=== PATIENT | female | born 1955 | race Caucasian/White ===

== ENCOUNTER 2017-04-28 11:41 | Inpatient (IN) | payer OTHER ==
[~2017-04-28] VITALS: Ht 162.6 cm; Wt 112.7 kg
[2017-04-28] MEDS ORDERED: ASPIRIN 81 MG TAB PO ONE (12:00)
[2017-04-28 12:07] LABS: BASOPHIL # 0.1 10^3/ul (0.0-0.1); EOSINOPHILS # 0.1 10^3/ul (0.0-0.5); EOSINOPHILS % 0.9 % (0.0-7.0); HEMOGLOBIN 14.3 g/dl (12.0-16.0); LYMPHOCYTES # 2.5 10^3/ul (0.8-2.9); LYMPHOCYTES % 30.6 % (15.0-51.0); MEAN CORPUSCULAR HEMOGLOBIN 29.2 pg (29.0-33.0); MEAN CORPUSCULAR HGB CONC 33.3 g/dl (32.0-37.0); MEAN CORPUSCULAR VOLUME 87.8 fl (82.0-101.0); MEAN PLATELET VOLUME 10.1 fl (7.4-10.4); MONOCYTE # 0.6 10^3/ul (0.3-0.9); MONOCYTES % 7.3 % (0.0-11.0); NEUTROPHIL # 4.8 10^3/ul (1.6-7.5); NEUTROPHILS % 59.9 % (39.0-77.0); PLATELET COUNT 288 10^3/UL (140-415); RED CELL DISTRIBUTION WIDTH 12.9 % (11.5-14.5)
--- NOTE | 2017-04-28 12:15 | ERD ---
ER Documentation Chief Complaint Chief Complaint left side weakness since 0800 today pain x1wk HPI This is a 62-year-old female with a past medical history of hypertension, diabetes, previous now resolved Alegre's palsy who is presenting with left-sided deficits beginning at approximately 7 AM this morning. The patient states that she felt well when she woke up this morning. However, at around 7 AM this morning, she started to notice some trouble speaking with decreased sensation and weakness to the left arm and leg. The patient's daughter saw her around 9 in the morning and she is concerned, especially when it did not improve. The patient endorses tingling and pain to the left side of her body as well. She lastly endorses a popping sensation in the left ear. The patient denies feeling sick recently. The patient denies fever or chills. The patient has had no headache or vision changes. The patient does not endorse neck or back pain. The patient denies lightheadedness or dizziness. The patient has had no chest pain or shortness of breath or trouble breathing. The patient denies nausea or vomiting. The patient denies abdominal pain or changes to bowel movements or urination. ROS All systems reviewed and are negative except as per history of present illness. Allergies Allergies: Coded Allergies: No Known Allergy (Unverified , 04/28/17) PMhx/Soc History of Surgery: No Hx Neurological Disorder: Yes (Previous resolved Alegre's palsy) Hx Respiratory Disorders: No Hx Cardiac Disorders: Yes (Hypertension, diabetes) Hx Psychiatric Problems: No Hx Miscellaneous Medical Probl: No Hx Alcohol Use: No Hx Substance Use: No Hx Tobacco Use: No FmHx Family History: diabetes Physical Exam Vitals Vital Signs Date Time Temp Pulse Resp B/P Pulse Ox O2 Delivery O2 Flow Rate FiO2 04/28/17 12:44 58 18 158/77 99 Room Air 04/28/17 11:44 98.3 75 18 204/118 99 Physical Exam Const: No apparent distress, well-developed, well-nourished Head: Normocephalic, Atraumatic Eyes: Normal Conjunctiva. Extraocular movements intact. Pupils equal, round and reactive to light ENT: Normal External Ears, Nose and Mouth. Neck: Full range of motion. No meningismus. Resp: Clear to auscultation bilaterally, No wheezes, rales or rhonchi Cardio: Regular rate and rhythm. No murmurs, rubs or gallops Abd: Soft, non tender, non distended. Normal bowel sounds Skin: No petechiae or rashes Back: No midline tenderness. No CVA tenderness Ext: No cyanosis, or edema Neur: Awake and alert, oriented 4. Recognizes a pen, cell phone, ID and flashlight. Decreased sensation to the left arm and left leg. 4+ out of 5 strength to the left arm and left leg with drift in each extremity as well. Normal strength, sensation and coordination to the right-sided extremities. Psych: Normal Mood and Affect Result Diagram: 04/28/17 1155 04/28/17 1155 Results 24 hrs Laboratory Tests Test 04/28/17 11:55 04/28/17 12:16 White Blood Count 8.010^3/ul Red Blood Count 4.9010^6/ul Hemoglobin 14.3g/dl Hematocrit 43.0% Mean Corpuscular Volume 87.8fl Mean Corpuscular Hemoglobin 29.2pg Mean Corpuscular Hemoglobin Concent 33.3g/dl Red Cell Distribution Width 12.9% Platelet Count 90116^3/UL Mean Platelet Volume 10.1fl Neutrophils % 59.9% Lymphocytes % 30.6% Monocytes % 7.3% Eosinophils % 0.9% Basophils % 1.0% Nucleated Red Blood Cells % 0.0/100WBC Neutrophils # 4.810^3/ul Lymphocytes # 2.510^3/ul Monocytes # 0.610^3/ul Eosinophils # 0.110^3/ul Basophils # 0.110^3/ul Nucleated Red Blood Cells # 0.010^3/ul Prothrombin Time 12.8Sec Prothrombin Time Ratio 1.0 INR International Normalized Ratio 0.96 Activated Partial Thromboplast Time 25.8Sec Sodium Level 143mmol/L Potassium Level 4.3mmol/L Chloride Level 107mmol/L Carbon Dioxide Level 25mmol/L Anion Gap 15 Blood Urea Nitrogen 13mg/dl Creatinine 0.80mg/dl Glucose Level 89mg/dl Hemoglobin A1c 5.5% Calcium Level 9.8mg/dl Troponin I < 0.012ng/ml Bedside Glucose 81mg/dL Current Medications Medications (Trade) Dose Ordered Sig/Rakan Route PRN Reason Start Time Stop Time Status Last Admin Dose Admin Aspirin (Aspirin) 324 mg ONCE ONCE PO 04/28/17 12:00 04/28/17 12:01 DC 04/28/17 12:49 Procedures/[facility] MDM The patient's presentation warrants further investigation. I am concerned of a stroke in this patient. A code stroke will be called. Tele-neurology will be consulted. LABS The patient's blood work was obtained and reviewed. The patient's CBC shows no leukocytosis and no left shift. The patient is afebrile and does not appear systemically ill. I do not suspect a systemic infection. The patient is not anemic today. The patient's platelet count is unremarkable. The patient's BMP shows no signs of metabolic or electrolyte emergencies. The patient has unremarkable renal testing. The patient's hemoglobin A1c is unremarkable. The patient's troponin is negative. The patient's coags are also unremarkable. EKG EKG read by me: Rate/Rhythm: Regular rate and rhythm at a rate of 61 bpm Intervals: Normal [place]: Left shifted Impression: No evidence of acute ischemia or arrhythmia IMAGING CXR FINDINGS: The trachea is midline. The cardiac silhouette and pulmonary vascularity are within normal limits. The lungs are clear. The costophrenic angles are sharp. There are multiple old right-sided rib fracture deformities. IMPRESSION: No evidence of acute cardiopulmonary disease. Multiple old right- sided rib fracture deformities. Electronically viewed and signed by Physician Koko on 04/28/2017 12:39 CT Head FINDINGS: The ventricles and cortical sulci are within normal limits. The nolasco- white matter differentiation is maintained. No intra or extra-axial fluid collection or mass effect or shift in the midline structures is seen. Mild mucosal thickening in the left sphenoid sinus is seen. The remaining visualized paranasal sinuses, mastoid air cells, orbits, and calvarium are unremarkable. IMPRESSION: No acute intracranial pathology. Electronically viewed and signed by Physician Lamont on 04/28/2017 12: 17 TREATMENT/DISPOSITION At this time, I feel that the patient requires admission for further evaluation and management. The patient's chads vasc score is 3. Tele-neurology evaluated the patient and felt that she required admission for further evaluation and management. The patient will likely require an MRI, echocardiogram, carotid studies. These subsequent studies will be decided on by the primary team. The patient will receive aspirin in the emergency department. The patient will be admitted to Panel in accordance with the patient's insurance. The patient was accepted by Dr. Ortiz at 1:25 PM on April 28, 2017. The patient's blood pressure was elevated at greater than 120/80 while in the emergency department. The patient was otherwise stable with no evidence of hypertensive urgency or emergency or end organ damage. The patient's blood pressure was initially quite elevated, but it improved on its own without intervention once things settle down in the emergency department. CRITICAL CARE NOTE Time: 35 minutes excluding all billable procedures. Treatments/Evaluations: Evaluation of the patient's medical record including previous records & current laboratory/imaging studies, close monitoring, potential interventions if hemodynamically unstable or cardiopulmonary decline or neurologic decline, maintaining tight fluid balance, any discussions with the family regarding the patient's status and prognosis. Disclaimer: Inadvertent spelling and grammatical errors are likely due to EHR/ dictation software use and do not reflect on the overall quality of patient care. Note that the electronic time recorded on this note does not necessarily reflect the actual time of the patient encounter. Departure Diagnosis: Primary Impression: CVA (cerebral vascular accident) CVA mechanism: unspecified Qualified Code: I63.9 - Cerebrovascular accident (CVA), unspecified mechanism Additional Impressions: Dysarthria Paresthesia Hypertension Hypertension type: unspecified Qualified Code: I10 - Hypertension, unspecified type Condition: Serious ANJUM RICO MD Apr 28, 2017 12:10 ANJUM RICO MD Apr 28, 2017 12:10
--- NOTE | 2017-04-28 12:17 | RADRPT ---
PROCEDURE: CT Head without contrast. CLINICAL INDICATION: Neurologic deficit TECHNIQUE: The study was performed utilizing a GE 64-slice multidetector CT scanner. Direct spiral axial CT images of the brain were obtained from the vertex to the skull base without contrast. Cor onal and sagittal reformat images are provided. The CTDI vol is 44.26 mGy and the DLP is 720.23 mGy -cm. The images were reviewed on a PACS workstation. One or more of the following dose reduction techniques were used: Automated exposure control. Adjustment of the mA and/or kV according to patient size. Use of iterative reconstruction technique. COMPARISON: No prior studies are available for comparison. FINDINGS: The ventricles and cortical sulci are within normal limits. The nolasco-white matter differentiation i s maintained. No intra or extra-axial fluid collection or mass effect or shift in the midline struc tures is seen. Mild mucosal thickening in the left sphenoid sinus is seen. The remaining visualized paranasal sinuses, mastoid air cells, orbits, and calvarium are unremarkable. IMPRESSION: No acute intracranial pathology. RPTAT: HPNM Physician Lamont Date Time Electronically viewed and signed by Physician Lamont on 04/28/2017 12:17 /
[2017-04-28 12:26] LABS: INR 0.96; PROTIME 12.8 Sec (12.2-14.2)
[2017-04-28 12:27] LABS: PARTIAL THROMBOPLASTIN TIME 25.8 Sec (25.0-35.0)
[2017-04-28 12:28] LABS: ANION GAP 15 (8-16); BLOOD UREA NITROGEN 13 mg/dl (7-20); CALCIUM 9.8 mg/dl (8.4-10.2); CARBON DIOXIDE 25 mmol/L (21-31); CHLORIDE 107 mmol/L (97-110); GLUCOSE 89 mg/dl (70-220); POTASSIUM 4.3 mmol/L (3.5-5.1); SODIUM 143 mmol/L (135-144)
[2017-04-28 12:40] LABS: TROPONIN-I < 0.012 ng/ml (0.00-0.12)
--- NOTE | 2017-04-28 12:40 | RADRPT ---
PROCEDURE: XR Chest. CLINICAL INDICATION: Shortness of breath TECHNIQUE: Single portable view of the chest was obtained COMPARISON: No priors for comparison FINDINGS: The trachea is midline. The cardiac silhouette and pulmonary vascularity are within normal limits. T he lungs are clear. The costophrenic angles are sharp. There are multiple old right-sided rib fractu re deformities. IMPRESSION: 1. No evidence of acute cardiopulmonary disease. 2. Multiple old right-sided rib fracture deformities. RPTAT: AAPP Physician Koko Date Time Electronically viewed and signed by Lexie Walker Physician on 04/28/2017 12:39 JL/
--- NOTE | 2017-04-28 13:14 | STROKE ---
Date/Time of Note Date/Time of Note DATE: 04/28/17 TIME: 13:05 Patient Information General Patient location: emergency Arrival Date Age 62 Gender female Weight 112.73 kg est by family POC Glucose Glucose Result Bedside Glucose - 72 Hours Test 04/28/17 12:16 Bedside Glucose 81mg/dL (70-220) Vital Signs Vital Signs Vital Signs Date Time Temp Pulse Resp B/P Pulse Ox O2 Delivery O2 Flow Rate FiO2 04/28/17 12:44 58 18 158/77 99 Room Air 04/28/17 11:44 98.3 Patient History Past Medical History Diabetes, Hypertension, Hypercholesterolemia Current Medications Anti-Coagulants: None Anti-Platelets: ASA 81mg Allergies: Coded Allergies: No Known Allergy (Unverified , 04/28/17) Labs Hematology Labs Hematology Test 04/28/17 11:55 White Blood Count 8.010^3/ul (4.8-10.8) Red Blood Count 4.9010^6/ul (4.20-5.40) Hemoglobin 14.3g/dl (12.0-16.0) Hematocrit 43.0% (37.0-47.0) Mean Corpuscular Volume 87.8fl (82.0-101.0) Mean Corpuscular Hemoglobin 29.2pg (29.0-33.0) Mean Corpuscular Hemoglobin Concent 33.3g/dl (32.0-37.0) Red Cell Distribution Width 12.9% (11.5-14.5) Platelet Count 56387^3/UL (140-415) Mean Platelet Volume 10.1fl (7.4-10.4) Neutrophils % 59.9% (39.0-77.0) Lymphocytes % 30.6% (15.0-51.0) Monocytes % 7.3% (0.0-11.0) Eosinophils % 0.9% (0.0-7.0) Basophils % 1.0% (0.0-2.0) Nucleated Red Blood Cells % 0.0/100WBC (0.0-0.0) Neutrophils # 4.810^3/ul (1.6-7.5) Lymphocytes # 2.510^3/ul (0.8-2.9) Monocytes # 0.610^3/ul (0.3-0.9) Eosinophils # 0.110^3/ul (0.0-0.5) Basophils # 0.110^3/ul (0.0-0.1) Nucleated Red Blood Cells # 0.010^3/ul (0.0-0.0) Chemistry Labs Chemistry Test 04/28/17 11:55 04/28/17 12:16 Sodium Level 143mmol/L (135-144) Potassium Level 4.3mmol/L (3.5-5.1) Chloride Level 107mmol/L (97-110) Carbon Dioxide Level 25mmol/L (21-31) Anion Gap 15 (8-16) Blood Urea Nitrogen 13mg/dl (7-20) Creatinine 0.80mg/dl (0.44-1.00) Glucose Level 89mg/dl (70-220) Hemoglobin A1c 5.5% (0-5.9) Calcium Level 9.8mg/dl (8.4-10.2) Troponin I < 0.012ng/ml (0.00-0.12) Bedside Glucose 81mg/dL (70-220) Coagulation Labs: Coagulation Test 04/28/17 11:55 Prothrombin Time 12.8Sec (12.2-14.2) Prothrombin Time Ratio 1.0 INR International Normalized Ratio 0.96 Activated Partial Thromboplast Time 25.8Sec (25.0-35.0) History & Physical Patient History Notes Pt Hx Reviewed History of Present Illness 62yo F presents with acute onset left sided weakness and numbness. Patient reports that she was normal when she woke up this morning but developed left sided numbness and weakness at 7am. She did not tell anyone until her daughter saw that she was having to hold on to furniture to walk due to imbalance. Patient also reports that she has been experiencing muscle pain in her left arm and leg and a burning pain in her left head and arm for some time. She also feels that her left ear is not right and feels like there is a pulsating air in her ear. Review of Systems Constitutional: no symptoms reported EENTM: see HPI Respiratory: no symptoms reported Cardiovascular: no symptoms reported Gastrointestinal: no symptoms reported Genitourinary: no symptoms reported Musculoskeletal: no symptoms reported Skin: no symptoms reported Psychiatric/Neurological: no symptoms reported All Other Systems: Reviewed and Negative NIH Stroke Scale NIH Stroke Scale 1A - Level of Conciousness: 0 - Alert keenly [id number] LOC Questions: 0 - Answers both questions2 - Best Gaze: 0 - Normal3 - Visual: 0 - No visual loss 4 - Facial Palsy: 0 - No visual loss5A - Motor Arm - Left: 0 - No crhtf2P - Motor Arm - Right: 0 - No xeida4L - Motor Leg - Left: 0 - No sdsns7E - Motor Leg - Right: 0 - No drift7 - Limb Ataxia: 0 - Absent8 - Sensory: 1 - Mild to moderate loss9 - Best Language: 0 - No aphasia or normalDysarthria: 0 - Normal 11 - Extinction and inattentio: 0 - No abnormalityTotal Score: 1 Date/Time Recorded DATE: 04/28/17 TIME: 13:05 Submitted By Michi Hoff t-PA Imaging Review Imaging Reviewed: Yes Date/Time Imaging Reviewed DATE: 04/28/17 TIME: 13:05 Imaging Findings No acute changes t-PA Administration Recommendation: No Weight 112.73 kg est by family Recommedation submitted by Michi Hoff Reason t-PA not Recommended outside of the time window, mild symptoms t-PA Not Recommended Date/Time 12:40 Recommendations Impression Diagnosis ischemic stroke Recommendation 62yo F presents with acute onset left sided numbness and weakness, now improved , as well more subacute onset left head and arm burning pain. Neurological exam is notable for decreased sensation to pin in the left face, arm, and leg. I believe the patient has had an acute ischemic stroke. I recommend workup to include MRI Brain without gadolinium, MRA of the head without gadolinium, MRA of the neck with gadolinium, and transthoracic echocardiogram. Given the burning pain described, I also recommend MRI cervical spine without gadolinium. I recommend aspirin 325mg x 1 now then 81mg daily. Diagnostic Labs: Lipid Proile Hgb A1C CMP CBC w/Diff Therapy: Physical Therapy Speech Therapy Occupational Therapy Misc. Recommendations: Bedside Swallow Evaluation Pnumatic Compression Devices Stroke Education Smoking Education MICHI HOFF Apr 28, 2017 13:13
[2017-04-28] MEDS ORDERED: ACETAMINOPHEN 325 MG TAB PO PRN ×2 (13:30→14:30)
[2017-04-28] MEDS ORDERED: ONDANSETRON 4 MG INJ IV PRN (13:30)
[2017-04-28] MEDS ORDERED: ASPI81TA3 PO (13:43)
[2017-04-28] MEDS ORDERED: CAPT25TA3 PO (13:43)
[2017-04-28] MEDS ORDERED: METF500T4 PO (13:44)
[2017-04-28] MEDS ORDERED: ATOR10TA65 PO (13:44)
[2017-04-28] MEDS ORDERED: SOD CHLORIDE 0.45% 1,000 ML IV SCH (14:12)
--- NOTE | 2017-04-28 14:26 | HP ---
Date/Time of Note Date/Time of Note DATE: 04/28/17 TIME: 14:17 Assessment/Plan VTE Prophylaxis VTE Prophylaxis Intervention: SCD's Lines/Catheters IV Catheter Type (from Nrs): Saline Lock Assessment/Plan Chief Complaint/Hosp Course Patient is a 62-year-old female who presents to [facility] for left-sided weakness and numbness, questionable CVA Assessment and plan Left-sided weakness and numbness and facial droop -Questionable CVA -Tele-neurologist decided no TPA due to outside window -Neurologist consulted -MRA, MRI, of the brain as well as MRA of the neck, as well as echocardiogram ordered. CT had noted, no acute issues -Full dose aspirin given today, baby aspirin starting tomorrow Left-sided leg and arm pain -Gabapentin -Questionable sequelae of CVA Neck pain -Questionable muscle strain -Robaxin Diabetes mellitus -Hold metformin for now -Insulin sliding scale -A1c Hypertension -On hold SUKHI inhibitor, captopril, will change to lisinopril for easier dosing and proven benefits over captopril Dyslipidemia -Increased atorvastatin to 80 mg due to acute CVA Problems: HPI/ROS Admit Date/Time Admit Date/Time Hx of Present Illness Patient is a 62-year-old female with past medical history of diabetes hypertension who presents to [facility] for acute onset left- sided weakness and numbness. Patient stated approximately 7 AM today she suddenly felt weak and numb on her left lower extremity and left upper extremity as well as difficulty speaking and left-sided facial numbness. Patient's daughter is at bedside and also contributes to HPI. Patient was sent to the ED and was seen by tele-neurologist, who did not prescribe TPA as patient is out of the window. Patient states that symptoms have mildly resolved , however it is now accompanied by a painful sensation to touch on her left lower extremity, mild pain to touch on her left upper extremity, as well as mild neck pain. 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 Patient denies any shortness of breath, fever, chest pain, nausea, vomiting at this time. PMH: Hypertension, diabetes mellitus, history of Alegre's palsy PSH: None Social: Denies Meds: Captopril, metformin, aspirin, atorvastatin PMH/Family/Social Social History Smoking Status: Never smoker Exam/Review of Systems Vital Signs Vitals Vital Signs Date Time Temp Pulse Resp B/P Pulse Ox O2 Delivery O2 Flow Rate FiO2 04/28/17 14:06 60 18 155/70 99 Room Air 04/28/17 11:44 98.3 Exam Exam Physical exam General: Patient is laying in bed and answers questions appropriately Mentation: Patient is alert and oriented 4, Head: Normocephalic atraumatic Eyes: EOMI, pupils reactive to light Neck: Supple, nontender, midline Respiratory: Clear to auscultation bilaterally Cardiovascular: regular rate, no obvious murmurs Gastrointestinal: non-tender to palpation, bowel sounds heard. Neurological: Strength LUE 4/5 RUE 5/5 LLE4/5 RLE 5/5 Sensation LUE/LLE 4/5 RUE/ RLE 5/5 Painful to touch on left LE, all areas, worse on thigh Skin: No new skin lesions Labs Result Diagram: 04/28/17 1155 04/28/17 1155 Medications Medications Current Medications Aspirin 81 mg 81 mg DAILY PO ; Start 04/29/17 at 09:00 Sodium Chloride (1/2 NS) 1,000 ml @ 75 mls/hr [id number] IV ; Start 04/28/17 at 14:12; Status UNV Lorazepam (Ativan) 0.5 mg Q8H PRN PO ANXIETY; Start 04/28/17 at 14:30; Status UNV Ondansetron HCl (Zofran Inj) 4 mg Q6H PRN IV NAUSEA AND/OR VOMITING; Start at 14:30; Status UNV Acetaminophen (Tylenol Tab) 650 mg Q6H PRN PO PAIN LEVEL 1-3 OR FEVER; Start 04/28/17 at 14:30; Status UNV Acetaminophen/ Hydrocodone Bitart ([place] (5/325)) 1 tab Q6H PRN PO PAIN LEVEL 4 -6; Start 04/28/17 at 14:30; Status UNV Morphine Sulfate (morphine) 2 mg Q4H PRN IV PAIN LEVEL 7-10; Start 04/28/17 at 14:30; Status UNV Bisacodyl (Dulcolax) 5 mg DAILY PRN PO CONSTIPATION; Start 04/28/17 at 14:30; Status UNV Gabapentin (Neurontin) 300 mg TID PO ; Start 04/28/17 at 21:00; Status UNV Lisinopril (Zestril) 20 mg DAILY PO ; Start 04/28/17 at 14:30; Status UNV Miscellaneous Information (* Miscellaneous Pharmacy Order) Discontinue current oral sulfonylur... ONCE ONCE XX ; Start 04/28/17 at 14:30; Stop 04/28/17 at 14:31; Status UNV Diagnostic Test (Pha) (Accu-Chek) XX ; Start 04/29/17 at 02:00; Status UNV Miscellaneous Information (* Miscellaneous Pharmacy Order) HYPOGLYCEMIA PROTOCOL w... ONCE ONCE XX ; Start 04/28/17 at 14:30; Stop 04/28/17 at 14:31 ; Status UNV Miscellaneous Information (* Miscellaneous Pharmacy Order) Discontinue all previ... ONCE ONCE XX ; Start 04/28/17 at 14:30; Stop 04/28/17 at 14:31; Status UNV PAVEL MONROE Apr 28, 2017 14:26
[2017-04-28] MEDS ORDERED: morphine 2 MG INJ IV PRN (14:30)
[2017-04-28] MEDS ORDERED: NACL 0.9% 3 ML SYG IV SCH (14:30)
[2017-04-28] MEDS ORDERED: LABETALOL HCL 20MG INJ IV PRN (14:30)
[2017-04-28] MEDS ORDERED: BISACODYL (EC) 5 MG TAB PO PRN (14:30)
[2017-04-28 15:52] VITALS: Ht 162.6 cm; Wt 112.7 kg
[2017-04-28 16:00] VITALS: PULSE 61
[2017-04-28] MEDS: ONDANSETRON 4 MG INJ IV PRN (16:48)
[2017-04-28] MEDS: HYDROCODONE/APAP (5/325) TAB PO PRN (16:48)
[2017-04-28] MEDS: LISINOPRIL 20 MG TAB PO SCH (17:00)
[2017-04-28 17:01] VITALS: BP 140/74; PULSE 55; RESP 16
[2017-04-28] MEDS: INSULIN ASPART [NOVOLOG] 3 ML PEN SC SCH ×2 (17:35→21:00)
[2017-04-28 19:00] VITALS: BP 126/61; PULSE 58; RESP 16
[2017-04-28 20:00] VITALS: PULSE 58
[2017-04-28] MEDS: METHOCARBAMOL 500 MG TAB PO SCH (20:38)
[2017-04-28] MEDS: GABAPENTIN 300 MG CAP PO SCH (20:38)
[2017-04-28] MEDS: LORAZEPAM 0.5 MG TAB PO PRN (20:38)
[2017-04-28] MEDS: ATORVASTATIN 80 MG TAB PO SCH (20:38)
[2017-04-28 23:30] VITALS: BP 120/63; PULSE 58; RESP 16
[2017-04-29] VITALS (10 sets, daily range): BP systolic 103–124; BP diastolic 56–68; PULSE 52–61; RESP 16–17
[2017-04-29] MEDS: ACCU-CHEK XX SCH (02:00)
[2017-04-29 05:58] LABS: BASOPHIL # 0.1 10^3/ul (0.0-0.1); BASOPHILS % 0.9 % (0.0-2.0); EOSINOPHILS # 0.1 10^3/ul (0.0-0.5); EOSINOPHILS % 1.3 % (0.0-7.0); HEMATOCRIT 38.7 % (37.0-47.0); HEMOGLOBIN 12.4 g/dl (12.0-16.0); LYMPHOCYTES % 40.9 % (15.0-51.0); MEAN CORPUSCULAR HEMOGLOBIN 28.6 pg (29.0-33.0); MEAN CORPUSCULAR VOLUME 89.4 fl (82.0-101.0); MEAN PLATELET VOLUME 10.7 fl (7.4-10.4); MONOCYTE # 0.6 10^3/ul (0.3-0.9); MONOCYTES % 8.3 % (0.0-11.0); NEUTROPHIL # 3.6 10^3/ul (1.6-7.5); NEUTROPHILS % 48.5 % (39.0-77.0); PLATELET COUNT 258 10^3/UL (140-415); RED BLOOD COUNT 4.33 10^6/ul (4.20-5.40); RED CELL DISTRIBUTION WIDTH 13.1 % (11.5-14.5); WHITE BLOOD COUNT 7.4 10^3/ul (4.8-10.8)
[2017-04-29 06:39] LABS: ALBUMIN 3.1 g/dl (3.3-4.9); ALBUMIN/GLOBULIN RATIO 1.03; BILIRUBIN,INDIRECT 0.5 mg/dl (0-1.1); BILIRUBIN,TOTAL 0.5 mg/dl (0.2-1.3); CALCIUM 9.5 mg/dl (8.4-10.2); CHOL/HDL RATIO 5.3 RATIO; CREATININE 0.8 mg/dl (0.44-1.00); MAGNESIUM 1.9 mg/dl (1.7-2.5); POTASSIUM 4.4 mmol/L (3.5-5.1); TOTAL PROTEIN 6.1 g/dl (6.1-8.1)
[2017-04-29 07:14] LABS: THYROID STIMULATING HORMONE 2.11 MIU/L (0.465-4.680)
[2017-04-29] MEDS: INSULIN ASPART [NOVOLOG] 3 ML PEN SC SCH ×4 (07:35→21:00)
[2017-04-29] MEDS: ASPIRIN 81 MG TAB PO SCH (08:30)
[2017-04-29] MEDS: GABAPENTIN 300 MG CAP PO SCH ×3 (08:30→21:45)
[2017-04-29] MEDS: LISINOPRIL 20 MG TAB PO SCH (08:30)
[2017-04-29] MEDS: METHOCARBAMOL 500 MG TAB PO SCH ×3 (09:31→21:45)
--- NOTE | 2017-04-29 11:29 | RADRPT ---
PROCEDURE: MR Brain without contrast. CLINICAL INDICATION: Neurologic deficit TECHNIQUE: An MRI of the brain was performed on a high-resolution MR scanner utilizing the followi ng sequences: Sagittal and axial T1 weighted, axial T2 weighted, axial FLAIR, coronal GRE, and axial diffusion weighted with ADC mapping. Images were reviewed high-resolution PACS workstation. No con trast was administered. COMPARISON: Head CT yesterday. FINDINGS: No acute parenchymal hemorrhage, mass effect, or midline shift. No evidence of recent infarct. A few scattered cerebral white matter FLAIR hyperintense foci are nonspecific. Partially empty appearance of the sella turcica. No suspicious parenchymal hypointense signal abnormalities are seen on the GRE images to suggest the presence of blood degradation products. The ventricles are normal in size for age. Normal flow voids are visible in the proximal intracranial arteries suggesting their patency. No significant opacification of the paranasal sinuses or mastoids. IMPRESSION: No acute intracranial abnormality or evidence of recent infarct. RPTAT: AA .Peyman Gimenez MD, MD Date Time Electronically viewed and signed by .Peyman Gimenez MD, on 04/29/2017 11:29 .T/
--- NOTE | 2017-04-29 11:30 | RADRPT ---
PROCEDURE: MRA Head without contrast. CLINICAL INDICATION: Neurologic deficit, stroke TECHNIQUE: MRA of the brain was performed utilizing 3-D [id number] imaging without intravenous contrast. Source and MIP images were reviewed. COMPARISON: None available. FINDINGS: No significant focal proximal stenosis or large vessel occlusion of the bilateral intracranial ICA, bilateral MCA, or bilateral TITO. There is also no significant focal proximal stenosis or large vess el occlusion of the bilateral intradural vertebral artery segments, basilar artery, or bilateral G[place] BOSS . No aneurysm is identified. IMPRESSION: Patent intracranial arteries. No large vessel occlusion identified. RPTAT: AA .Peyman Gimenez MD, MD Date Time Electronically viewed and signed by .Peyman Gimenez MD, on 04/29/2017 11:29 .T/
--- NOTE | 2017-04-29 12:20 | RADRPT ---
PROCEDURE: MRA Neck without contrast. CLINICAL INDICATION: Neurologic deficit, stroke TECHNIQUE: An MRA of the major cervical arteries was performed on a utilizing axial 2D time of fli ght and localized 3-D [id number] to the carotid bifurcations. No IV contrast was given as orde red. Source and MIPPED images were reviewed. COMPARISON: No prior studies are available for comparison. FINDINGS: There is no significant focal stenosis of the bilateral common carotid, internal carotid or visualiz ed vertebral arteries. Measurements for possible stenosis utilized NASCET criteria. IMPRESSION: Patent major cervical arteries. RPTAT: AA .Peyman Gimenez MD, MD Date Time Electronically viewed and signed by .Peyman Gimenez MD, on 04/29/2017 12:20 .T/
--- NOTE | 2017-04-29 13:30 | PN ---
Date/Time of Note Date/Time of Note DATE: 04/29/17 TIME: 13:27 Assessment/Plan VTE Prophylaxis VTE Prophylaxis Intervention: SCD's Lines/Catheters IV Catheter Type (from Nrsg): Saline Lock Assessment/Plan Chief Complaint/Hosp Course Patient is a 62-year-old female who presents to [facility] for left-sided weakness and numbness, questionable CVA Assessment and plan Left-sided weakness and numbness and facial droop -Questionable CVA -Tele-neurologist decided no TPA due to outside window -Neurologist consulted -MRI, MRA, CT WNL -baby asa -statin Left-sided leg and arm pain -Gabapentin helping -Questionable sequelae of CVA vs spinal? -arm pain resolved, but if leg pain persists tomorrow, may consider spinal imaging Neck pain -Questionable muscle strain -Robaxin helping Diabetes mellitus -Hold metformin for now -Insulin sliding scale -A1c Hypertension -Patient was on captopril, will change to lisinopril for easier dosing and proven benefits over captopril Dyslipidemia -Increased atorvastatin to 80 mg due to acute CVA DISPO: -pending neuro recs -f/u tomorrow, if symptoms improve, will consider DC once neuro input is in. Problems: Subjective 24 Hr Interval Summary Free Text/Dictation pain has decreased, but still painful left thigh and facial droop Exam/Review of Systems Vital Signs Vitals Vital Signs Date Time Temp Pulse Resp B/P Pulse Ox O2 Delivery O2 Flow Rate FiO2 04/29/17 12:00 55 04/29/17 07:45 98.5 17 115/56 98 Room Air Exam Physical exam General: Patient is laying in bed and answers questions appropriately Mentation: Patient is alert and oriented 4, Head: Normocephalic atraumatic Eyes: EOMI, pupils reactive to light Neck: Supple, nontender, midline Respiratory: Clear to auscultation bilaterally Cardiovascular: regular rate, no obvious murmurs Gastrointestinal: non-tender to palpation, bowel sounds heard. Neurological: Strength LUE 4/5 RUE 5/5 LLE4/5 RLE 5/5 Sensation LUE/LLE 4/5 RUE/ RLE 5/5 Painful to touch on left LE, all areas, worse on thigh Skin: No new skin lesions Results Result Diagram: 04/29/17 0429 04/29/17 0429 Results 24 hrs Laboratory Tests Test 04/28/17 17:50 11/20/17 20:35 04/29/17 04:29 04/29/17 07:48 Bedside Glucose 80 105 86 White Blood Count 7.4 Red Blood Count 4.33 Hemoglobin 12.4 Hematocrit 38.7 Mean Corpuscular Volume 89.4 Mean Corpuscular Hemoglobin 28.6 L Mean Corpuscular Hemoglobin Concent 32.0 Red Cell Distribution Width 13.1 Platelet Count 258 Mean Platelet Volume 10.7 H Neutrophils % 48.5 Lymphocytes % 40.9 Monocytes % 8.3 Eosinophils % 1.3 Basophils % 0.9 Nucleated Red Blood Cells % 0.0 Neutrophils # 3.6 Lymphocytes # 3.0 H Monocytes # 0.6 Eosinophils # 0.1 Basophils # 0.1 Nucleated Red Blood Cells # 0.0 Sodium Level 143 Potassium Level 4.4 Chloride Level 108 Carbon Dioxide Level 26 Anion Gap 13 Blood Urea Nitrogen 16 Creatinine 0.80 Glucose Level 79 Calcium Level 9.5 Magnesium Level 1.9 Total Bilirubin 0.5 Direct Bilirubin 0.00 Indirect Bilirubin 0.5 Aspartate Amino Transf (AST/SGOT) 16 Alanine Aminotransferase (ALT/SGPT) 35 Alkaline Phosphatase 68 Total Protein 6.1 Albumin 3.1 L Globulin 3.00 Albumin/Globulin Ratio 1.03 Triglycerides Level 112 Cholesterol Level 171 LDL Cholesterol, Calculated 117 HDL Cholesterol 32 L Cholesterol/HDL Ratio 5.3 Thyroid Stimulating Hormone (TSH) 2.110 Test 04/29/17 12:17 Bedside Glucose 82 Medications Medications Current Medications Aspirin (Aspirin) 81 mg DAILY PO Last administered on 04/29/17 08:30; Admin Dose 81 MG; Start 04/29/17 at 09:00 Lorazepam (Ativan) 0.5 mg Q8H PRN PO ANXIETY Last administered on 04/28/17 20 :38; Admin Dose 0.5 MG; Start 04/28/17 at 14:30 Ondansetron HCl (Zofran Inj) 4 mg Q6H PRN IV NAUSEA AND/OR VOMITING Last administered on 04/28/17 16:48; Admin Dose 4 MG; Start 04/28/17 at 14:30 Acetaminophen (Tylenol Tab) 650 mg Q6H PRN PO PAIN LEVEL 1-3 OR FEVER; Start 04/28/17 at 14:30 Acetaminophen/ Hydrocodone Bitart ([place] (5/325)) 1 tab Q6H PRN PO PAIN LEVEL 4 -6 Last administered on 04/28/17 16:48; Admin Dose 1 TAB; Start 04/28/17 at 14:30 Morphine Sulfate (morphine) 2 mg Q4H PRN IV PAIN LEVEL 7-10; Start 04/28/17 at 14:30 Bisacodyl (Dulcolax) 5 mg DAILY PRN PO CONSTIPATION; Start 04/28/17 at 14:30 Gabapentin (Neurontin) 300 mg TID PO Last administered on 04/29/17 08:30; Admin Dose 300 MG; Start 04/28/17 at 21:00 Lisinopril (Zestril) 20 mg DAILY PO Last administered on 04/29/17 08:30; Admin Dose 20 MG; Start 04/28/17 at 14:30 Diagnostic Test (Pha) (Accu-Chek) 1 ea 02 XX ; Start 04/29/17 at 02:00 Atorvastatin Calcium (Lipitor) 80 mg HS PO Last administered on 04/28/17 20: 38; Admin Dose 80 MG; Start 04/28/17 at 21:00 Methocarbamol (Robaxin) 1,000 mg TID PO Last administered on 04/29/17 09:31; Admin Dose 1,000 MG; Start 04/28/17 at 21:00 Labetalol HCl (Labetalol) 10 mg Q4 PRN IV SBP >180; Start 04/28/17 at 14:30 PAVEL MONROE Apr 29, 2017 13:30
--- NOTE | 2017-04-29 17:22 | CONS ---
Date/Time of Note Date/Time of Note DATE: 04/29/17 TIME: 17:18 Assessment/Plan Assessment/Plan Chief Complaint/Hosp Course 62 yo female w HTN, HLD, DM p/w left sided numbness and weakness w difficulty communicating improved. possible TIA ASA 81 mg EC HBA1C 5.5 Lipitor 80 mg optimize risk factors SBP <140/90 ECHO DVT ppx PT/OT/Speech eval Problems: Consultation Date/Type/Reason Admit Date/Time 04/29/17 Date of Consultation: Apr 29, 2017 Type of Consultation: Neurology Reason for Consultation rule out CVA Referring Provider: PAVEL MONROE Hx of Present Illness 62 yo female with hx of DM, HTN presented w left sided weakness numbness and pain in her left arm. Reportedly had difficulty speaking and left facial numbness. She was out of an IV tPA window. MRI Brain and MRA Head/Neck are negative. 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 II-XII intact, DTR's symmetric (mild left arm leg weakness 5- /5 w drift), nl mental status, nl speech Results Result Diagram: 04/29/179 04/29/17428 Results 24 hrs Laboratory Tests Test 04/28/17 17:50 04/28/17 20:35 04/29/17 04:29 04/29/17 07:48 Bedside Glucose 80 105 86 White Blood Count 7.4 Red Blood Count 4.33 Hemoglobin 12.4 Hematocrit 38.7 Mean Corpuscular Volume 89.4 Mean Corpuscular Hemoglobin 28.6 L Mean Corpuscular Hemoglobin Concent 32.0 Red Cell Distribution Width 13.1 Platelet Count 258 Mean Platelet Volume 10.7 H Neutrophils % 48.5 Lymphocytes % 40.9 Monocytes % 8.3 Eosinophils % 1.3 Basophils % 0.9 Nucleated Red Blood Cells % 0.0 Neutrophils # 3.6 Lymphocytes # 3.0 H Monocytes # 0.6 Eosinophils # 0.1 Basophils # 0.1 Nucleated Red Blood Cells # 0.0 Sodium Level 143 Potassium Level 4.4 Chloride Level 108 Carbon Dioxide Level 26 Anion Gap 13 Blood Urea Nitrogen 16 Creatinine 0.80 Glucose Level 79 Calcium Level 9.5 Magnesium Level 1.9 Total Bilirubin 0.5 Direct Bilirubin 0.00 Indirect Bilirubin 0.5 Aspartate Amino Transf (AST/SGOT) 16 Alanine Aminotransferase (ALT/SGPT) 35 Alkaline Phosphatase 68 Total Protein 6.1 Albumin 3.1 L Globulin 3.00 Albumin/Globulin Ratio 1.03 Triglycerides Level 112 Cholesterol Level 171 LDL Cholesterol, Calculated 117 HDL Cholesterol 32 L Cholesterol/HDL Ratio 5.3 Thyroid Stimulating Hormone (TSH) 2.110 Test 04/29/17 12:17 04/29/17 16:54 Bedside Glucose 82 90 Medications Medications Current Medications Aspirin (Aspirin) 81 mg DAILY PO Last administered on 04/29/17 08:30; Admin Dose 81 MG; Start 04/29/17 at 09:00 Lorazepam (Ativan) 0.5 mg Q8H PRN PO ANXIETY Last administered on 04/28/17 20 :38; Admin Dose 0.5 MG; Start 04/28/17 at 14:30 Ondansetron HCl (Zofran Inj) 4 mg Q6H PRN IV NAUSEA AND/OR VOMITING Last administered on 04/28/17 16:48; Admin Dose 4 MG; Start 04/28/17 at 14:30 Acetaminophen (Tylenol Tab) 650 mg Q6H PRN PO PAIN LEVEL 1-3 OR FEVER; Start 04/28/17 at 14:30 Acetaminophen/ Hydrocodone Bitart ([place] (5/325)) 1 tab Q6H PRN PO PAIN LEVEL 4 -6 Last administered on 04/28/17 16:48; Admin Dose 1 TAB; Start 04/28/17 at 14:30 Morphine Sulfate (morphine) 2 mg Q4H PRN IV PAIN LEVEL 7-10; Start 04/28/17 at 14:30 Bisacodyl (Dulcolax) 5 mg DAILY PRN PO CONSTIPATION; Start 04/28/17 at 14:30 Gabapentin (Neurontin) 300 mg TID PO Last administered on 04/29/17 13:33; Admin Dose 300 MG; Start 04/28/17 at 21:00 Lisinopril (Zestril) 20 mg DAILY PO Last administered on 04/29/17 08:30; Admin Dose 20 MG; Start 04/28/17 at 14:30 Diagnostic Test (Pha) (Accu-Chek) 1 ea 02 XX ; Start 04/29/17 at 02:00 Atorvastatin Calcium (Lipitor) 80 mg HS PO Last administered on 04/28/17 20: 38; Admin Dose 80 MG; Start 04/28/17 at 21:00 Methocarbamol (Robaxin) 1,000 mg TID PO Last administered on 04/29/17 13:33; Admin Dose 1,000 MG; Start 04/28/17 at 21:00 Labetalol HCl (Labetalol) 10 mg Q4 PRN IV SBP >180; Start 04/28/17 at 14:30 JALEN BYRNE MD Apr 29, 2017 17:22
[2017-04-29] MEDS: HYDROCODONE/APAP (5/325) TAB PO PRN (19:55)
[2017-04-29] MEDS: LORAZEPAM 0.5 MG TAB PO PRN (21:45)
[2017-04-29] MEDS: ATORVASTATIN 80 MG TAB PO SCH (22:24)
[2017-04-30] VITALS (8 sets, daily range): BP systolic 109–148; BP diastolic 59–70; PULSE 51–68; RESP 16–17
[2017-04-30] MEDS: ACCU-CHEK XX SCH (02:00)
[2017-04-30] MEDS: INSULIN ASPART [NOVOLOG] 3 ML PEN SC SCH ×4 (07:35→21:00)
[2017-04-30 07:41] LABS: BASOPHIL # 0.1 10^3/ul (0.0-0.1); BASOPHILS % 0.8 % (0.0-2.0); EOSINOPHILS # 0.1 10^3/ul (0.0-0.5); EOSINOPHILS % 1.6 % (0.0-7.0); HEMATOCRIT 39.1 % (37.0-47.0); HEMOGLOBIN 12.8 g/dl (12.0-16.0); LYMPHOCYTES # 2.5 10^3/ul (0.8-2.9); LYMPHOCYTES % 39.1 % (15.0-51.0); MEAN CORPUSCULAR HGB CONC 32.7 g/dl (32.0-37.0); MEAN CORPUSCULAR VOLUME 88.7 fl (82.0-101.0); MEAN PLATELET VOLUME 10.5 fl (7.4-10.4); MONOCYTE # 0.5 10^3/ul (0.3-0.9); MONOCYTES % 7.2 % (0.0-11.0); NEUTROPHIL # 3.2 10^3/ul (1.6-7.5); NEUTROPHILS % 51.1 % (39.0-77.0); PLATELET COUNT 253 10^3/UL (140-415); RED BLOOD COUNT 4.41 10^6/ul (4.20-5.40); RED CELL DISTRIBUTION WIDTH 13.2 % (11.5-14.5); WHITE BLOOD COUNT 6.3 10^3/ul (4.8-10.8)
[2017-04-30 08:07] LABS: CALCIUM 9.6 mg/dl (8.4-10.2); CREATININE 0.83 mg/dl (0.44-1.00); PHOSPHORUS 4.3 mg/dl (2.5-4.9); POTASSIUM 4.2 mmol/L (3.5-5.1)
[2017-04-30] MEDS: GABAPENTIN 300 MG CAP PO SCH ×3 (08:24→21:16)
[2017-04-30] MEDS: LISINOPRIL 20 MG TAB PO SCH (08:25)
[2017-04-30] MEDS: ASPIRIN 81 MG TAB PO SCH (08:25)
[2017-04-30] MEDS: HYDROCODONE/APAP (5/325) TAB PO PRN (10:03)
[2017-04-30] MEDS: METHOCARBAMOL 500 MG TAB PO SCH ×3 (10:33→21:16)
--- NOTE | 2017-04-30 14:59 | PN ---
Date/Time of Note Date/Time of Note DATE: 04/30/17 TIME: 14:58 Assessment/Plan VTE Prophylaxis VTE Prophylaxis Intervention: SCD's Lines/Catheters IV Catheter Type (from Nrsg): Saline Lock Assessment/Plan Chief Complaint/Hosp Course s: still has left leg pain o: Physical exam General: Patient is laying in bed and answers questions appropriately Mentation: Patient is alert and oriented 4, Head: Normocephalic atraumatic Eyes: EOMI, pupils reactive to light Neck: Supple, nontender, midline Respiratory: Clear to auscultation bilaterally Cardiovascular: regular rate, no obvious murmurs Gastrointestinal: non-tender to palpation, bowel sounds heard. Neurological: Strength LUE 4/5 RUE 5/5 LLE4/5 RLE 5/5 Sensation LUE/LLE 4/5 RUE/ RLE 5/5 Painful to touch on left LE, all areas, worse on thigh Skin: No new skin lesions Patient is a 62-year-old female who presents to [facility] for left-sided weakness and numbness, questionable CVA Assessment and plan Left-sided weakness and numbness and facial droop -Questionable CVA -Tele-neurologist decided no TPA due to outside window -Neurologist consulted -MRI, MRA, CT WNL -baby asa -statin Left-sided leg and arm pain -Gabapentin helping -Questionable sequelae of CVA vs spinal? -arm pain resolved, leg pain continues -increase gabapentin dose -increase robaxin dose Neck pain -Questionable muscle strain -Robaxin helping Diabetes mellitus -Hold metformin for now -Insulin sliding scale -A1c Hypertension -Patient was on captopril, will change to lisinopril for easier dosing and proven benefits over captopril Dyslipidemia -Increased atorvastatin to 80 mg due to acute CVA DISPO: -pending neuro recs -pending MRI Problems: Exam/Review of Systems Vital Signs Vitals Vital Signs Date Time Temp Pulse Resp B/P Pulse Ox O2 Delivery O2 Flow Rate FiO2 04/30/17 12:00 68 04/30/17 12:00 98.2 17 121/59 97 Room Air Results Result Diagram: 04/30/17 0710 04/30/17 0710 Results 24 hrs Laboratory Tests Test 04/29/17 16:54 04/29/17 21:32 04/30/17 07:10 04/30/17 07:46 Bedside Glucose 90 92 89 White Blood Count 6.3 Red Blood Count 4.41 Hemoglobin 12.8 Hematocrit 39.1 Mean Corpuscular Volume 88.7 Mean Corpuscular Hemoglobin 29.0 Mean Corpuscular Hemoglobin Concent 32.7 Red Cell Distribution Width 13.2 Platelet Count 253 Mean Platelet Volume 10.5 H Neutrophils % 51.1 Lymphocytes % 39.1 Monocytes % 7.2 Eosinophils % 1.6 Basophils % 0.8 Nucleated Red Blood Cells % 0.0 Neutrophils # 3.2 Lymphocytes # 2.5 Monocytes # 0.5 Eosinophils # 0.1 Basophils # 0.1 Nucleated Red Blood Cells # 0.0 Sodium Level 143 Potassium Level 4.2 Chloride Level 108 Carbon Dioxide Level 28 Anion Gap 11 Blood Urea Nitrogen 19 Creatinine 0.83 Glucose Level 84 Calcium Level 9.6 Phosphorus Level 4.3 Magnesium Level 2.0 Test 04/30/17 12:17 Bedside Glucose 141 Medications Medications Current Medications Aspirin (Aspirin) 81 mg DAILY PO Last administered on 04/30/17 08:25; Admin Dose 81 MG; Start 04/29/17 at 09:00 Lorazepam (Ativan) 0.5 mg Q8H PRN PO ANXIETY Last administered on 04/29/17 21 :45; Admin Dose 0.5 MG; Start 04/28/17 at 14:30 Ondansetron HCl (Zofran Inj) 4 mg Q6H PRN IV NAUSEA AND/OR VOMITING Last administered on 04/28/17 16:48; Admin Dose 4 MG; Start 04/28/17 at 14:30 Acetaminophen (Tylenol Tab) 650 mg Q6H PRN PO PAIN LEVEL 1-3 OR FEVER; Start 04/28/17 at 14:30 Acetaminophen/ Hydrocodone Bitart ([place] (5/325)) 1 tab Q6H PRN PO PAIN LEVEL 4 -6 Last administered on 04/30/17 10:03; Admin Dose 1 TAB; Start 04/28/17 at 14:30 Morphine Sulfate (morphine) 2 mg Q4H PRN IV PAIN LEVEL 7-10; Start 04/28/17 at 14:30 Bisacodyl (Dulcolax) 5 mg DAILY PRN PO CONSTIPATION; Start 04/28/17 at 14:30 Lisinopril (Zestril) 20 mg DAILY PO Last administered on 04/30/17 08:25; Admin Dose 20 MG; Start 04/28/17 at 14:30 Diagnostic Test (Pha) (Accu-Chek) 1 ea 02 XX ; Start 04/29/17 at 02:00 Atorvastatin Calcium (Lipitor) 80 mg HS PO Last administered on 04/29/17 22: 24; Admin Dose 80 MG; Start 04/28/17 at 21:00 Labetalol HCl (Labetalol) 10 mg Q4 PRN IV SBP >180; Start 04/28/17 at 14:30 Gabapentin (Neurontin) 600 mg TID PO Last administered on 04/30/17 12:36; Admin Dose 600 MG; Start 04/30/17 at 13:00 Methocarbamol (Robaxin) 1,500 mg TID PO Last administered on 04/30/17 12:36; Admin Dose 1,500 MG; Start 04/30/17 at 13:00 PAVEL MONROE Apr 30, 2017 14:59
--- NOTE | 2017-04-30 18:26 | RADRPT ---
Echocardiogram Report Patient Name: ERIK ALFORD Gender: Female Date: 1955 Study Date: 29-Apr-2017 Laboratory Chief: Dedrick Torres [facility] Location: 3301 Ref. Physician: PAVEL MONROE Quality: Technically Difficult Study Procedures: Transthoracic echocardiogram with complete 2D, M-Mode, and doppler examination. Indications: Cerebrovascular Accident. 2D/M Mode Doppler Measurement Value Normal Ranges Measurement Value Normal Ranges LVIDd 2D 4.8 3.5 - 5.6 cm AV Peak Matthew 1.4 m/sec LVIDs 2D 2.6 2.1 - 4.1 cm AV Peak PG 7.6 mmHg LVPWd 2D 1.2 0.6 - 1.1 cm LVOT Peak Matthew 1.0 m/sec IVSd 2D 1.0 0.6 - 1.1 cm LVOT Peak PG 3.9 mmHg AoR Diam 2D 3.0 2.0 - 3.7 cm MV E Peak Matthew 0.7 m/sec EDV 2D 107.7 cm3 MV A Peak Matthew 0.8 m/sec ESV 2D 17.0 cm3 MV E/A 1.0 LA Dimen 2D 3.7 2.3 - 4.0 cm MV Decel Time 228 msec MV Decel Coal 3 MV E/A 1.0 TR Peak Matthew 2.1 m/sec TR Peak PG 17.0 mmHg RVSP 20.0 mmHg Findings Left Ventricle: Normal left ventricular systolic function. Normal left ventricular cavity size. Mild concentric left ventricular hypertrophy. Ejection fraction is visually estimated at 60 %. Tissue Doppler/Mitral Doppler indices are consistent with impaired relaxation (Stage I diastolic dysfunction). Right Ventricle: Normal right ventricular size. Normal right ventricular systolic function. Left Atrium: The left atrium is normal in size. Right Atrium: The right atrium is normal in size. Mitral Valve: Mitral valve leaflets appear mildly thickened. Mild mitral annular calcification. Trace mitral regurgitation. Aortic Valve: No significant aortic stenosis or insufficiency. Aortic cusps appear mildly calcified. Tricuspid Valve: Normal appearance of the tricuspid valve. Estimated peak PA systolic pressure 20 mmHg. There is trace tricuspid regurgitation. Pulmonic Valve: Pulmonic valve not well visualized. Pericardium: Normal pericardium with no significant pericardial effusion. Aorta: Normal aortic root. IVC: Normal size and normal respiratory collapse consistent with normal right atrial pressure. Conclusions 1.Normal left ventricular systolic function. Normal left ventricular cavity size. Mild concentric left ventricular hypertrophy. Ejection fraction is visually estimated at 60 %. Tissue Doppler/Mitral Doppler indices are consistent with impaired relaxation (Stage I diastolic dysfunction). 2.Mitral valve leaflets appear mildly thickened. Mild mitral annular calcification. Trace mitral regurgitation. 3.Normal appearance of the tricuspid valve. Estimated peak PA systolic pressure 20 mmHg. There is trace tricuspid regurgitation. Electronically Signed By: Zak Ernst 30-Apr-2017 18:25:23 -0800 Patient Name: ERIK ALFORD Study Date: 29-Apr-2017 [id number]
[2017-04-30] MEDS: ATORVASTATIN 80 MG TAB PO SCH (21:16)
--- NOTE | 2017-04-30 21:48 | RADRPT ---
PROCEDURE: MRI OF THE LUMBAR SPINE. CLINICAL INDICATION: Left leg numbness and pain. TECHNIQUE: Multiple MRI images were obtained utilizing multiple sequences in sagittal and axial [place]. Images were interpreted on high-resolution PACS system. No contrast was administered. COMPARISON: None available FINDINGS: The vertebral bodies maintain normal height. There are no acute fractures. Bone marrow signal is wi thin normal limits. There is mild to moderate right convex curvature of the upper lumbar spine. The conus ends at L1-L2. The distal cord is normal in signal and caliber. There is no evidence of arachnoiditis. Paraspinal musculature is unremarkable. There is edema within the posterior paraspin al subcutaneous soft tissues. T10-T11: Mild to moderate loss of disc height with disc desiccation, Schmorl's nodes, anterior endp late osteophytes. Small 2 mm central disc protrusion but no central canal or neural foraminal narrow ing. T11-T12: Minimal loss of disc height with small Schmorl's nodes. Minimal annular bulge but no centra l canal or neural foramen narrowing. T12-L1: Normal disc height and signal. No annular bulge, central canal narrowing, or neural foramina l narrowing. Mild bilateral facet arthropathy with a facet joint effusion on the right. L1-L2: Moderate to severe loss of disc height with disc desiccation, Schmorl's nodes, vacuum disc, and type 2 endplate changes. Anterior endplate osteophytes. Broad 3 - 4 mm right posterolateral to l eft posterolateral disc protrusion and posterolateral osseous ridging with mild central canal narrow ing. Mild bilateral neural foraminal narrowing. Mild bilateral facet arthropathy. L2-L3: Moderate to severe loss of disc height more prominent on the left with disc desiccation, Schm orl's nodes, vacuum disc, and type 2 endplate changes. Anterior endplate osteophytes. There is a 3 - 4 mm central to left posterolateral disc protrusion with slight narrowing of the left lateral reces s and mild to moderate central canal narrowing. Mild left and no right neural foraminal narrowing. M ild bilateral facet arthropathy. L3-L4: Mild loss of disc height with minimal retrolisthesis and vacuum disc. Mild annular bulge with a 4 mm left posterolateral to foraminal disc protrusion and disc osteophytes with left greater than right lateral recess narrowing and moderate central canal narrowing. Mild to moderate left and mild right neural foraminal narrowing. Mild bilateral facet arthropathy. L4-L5: Normal disc height and signal. Mild annular bulge but no central canal or neural foraminal n arrowing. Mild bilateral facet arthropathy. L5-S1: Severe loss of disc height with anterior plate osteophytes, disc desiccation, vacuum disc, en dplate irregularity, and type 2 endplate changes. There is a 3-4 mm left foraminal disc protrusion a nd left greater than right posterolateral osseous ridging but no central canal narrowing. Mild to mo derate left and mild right neural foraminal narrowing. Mild bilateral facet arthropathy. RPTAT: AA IMPRESSION: 1. Moderate to severe degenerative disc disease at L1-L2 and L2-L3 with 3-4 mm disc protrusions with mild/mild to moderate central canal narrowing. 2. Severe degenerative disc disease at L5-S1 with a 3-4 mm left foraminal disc protrusion and disc o steophytes with mild to moderate left neural foraminal narrowing. 3. Left posterolateral to foraminal 4 mm disc protrusion at L3-L4 with left greater than right later al recess narrowing and moderate central canal narrowing. Mild to moderate left neural foraminal isabella rowing. .Ivana Crowe MD, MD Date Time Electronically viewed and signed by .Ivana Crowe MD, on 04/30/2017 21:48 .T/
[2017-05-01] VITALS (12 sets, daily range): BP systolic 102–130; BP diastolic 57–73; PULSE 52–75; RESP 17–21
[2017-05-01] MEDS: ACCU-CHEK XX SCH (02:00)
[2017-05-01] MEDS: INSULIN ASPART [NOVOLOG] 3 ML PEN SC SCH ×4 (08:00→21:00)
[2017-05-01] MEDS: ASPIRIN 81 MG TAB PO SCH (09:16)
[2017-05-01] MEDS: GABAPENTIN 300 MG CAP PO SCH ×3 (09:16→21:02)
[2017-05-01] MEDS: METHOCARBAMOL 500 MG TAB PO SCH ×3 (09:16→21:03)
[2017-05-01] MEDS: LISINOPRIL 20 MG TAB PO SCH (09:17)
[2017-05-01 09:38] LABS: BASOPHIL # 0.1 10^3/ul (0.0-0.1); EOSINOPHILS # 0.1 10^3/ul (0.0-0.5); EOSINOPHILS % 1.3 % (0.0-7.0); HEMATOCRIT 40.8 % (37.0-47.0); HEMOGLOBIN 13.2 g/dl (12.0-16.0); LYMPHOCYTES # 2.4 10^3/ul (0.8-2.9); LYMPHOCYTES % 34.4 % (15.0-51.0); MEAN CORPUSCULAR HEMOGLOBIN 28.9 pg (29.0-33.0); MEAN CORPUSCULAR HGB CONC 32.4 g/dl (32.0-37.0); MEAN CORPUSCULAR VOLUME 89.5 fl (82.0-101.0); MEAN PLATELET VOLUME 10.6 fl (7.4-10.4); MONOCYTE # 0.4 10^3/ul (0.3-0.9); MONOCYTES % 5.4 % (0.0-11.0); NEUTROPHIL # 4.1 10^3/ul (1.6-7.5); NEUTROPHILS % 57.6 % (39.0-77.0); PLATELET COUNT 252 10^3/UL (140-415); RED BLOOD COUNT 4.56 10^6/ul (4.20-5.40); RED CELL DISTRIBUTION WIDTH 13.1 % (11.5-14.5); WHITE BLOOD COUNT 7.1 10^3/ul (4.8-10.8)
[2017-05-01 10:26] LABS: CALCIUM 9.4 mg/dl (8.4-10.2); CREATININE 0.87 mg/dl (0.44-1.00); MAGNESIUM 1.9 mg/dl (1.7-2.5); POTASSIUM 4.1 mmol/L (3.5-5.1)
--- NOTE | 2017-05-01 11:38 | PN ---
Date/Time of Note Date/Time of Note DATE: 05/01/17 TIME: 11:31 Assessment/Plan VTE Prophylaxis VTE Prophylaxis Intervention: SCD's Lines/Catheters IV Catheter Type (from Nrsg): Saline Lock Assessment/Plan Chief Complaint/Hosp Course s: 05.01: leg pain improved, facial droop improved o: Physical exam General: Patient is laying in bed and answers questions appropriately Mentation: Patient is alert and oriented 4, Head: Normocephalic atraumatic Eyes: EOMI, pupils reactive to light Neck: Supple, nontender, midline Respiratory: Clear to auscultation bilaterally Cardiovascular: regular rate, no obvious murmurs Gastrointestinal: non-tender to palpation, bowel sounds heard. Neurological: Strength LUE 4/5 RUE 5/5 LLE4/5 RLE 5/5 Sensation LUE/LLE 4/5 RUE/ RLE 5/5 Painful to touch on left LE, limited to back of leg, worse on thigh Skin: No new skin lesions Patient is a 62-year-old female who presents to [facility] for left-sided weakness and numbness, questionable CVA Assessment and plan Left-sided weakness and numbness and facial droop -Questionable CVA -Tele-neurologist decided no TPA due to outside window -Neurologist consulted -MRI, MRA, CT WNL -baby asa -statin Left-sided leg and arm pain -Gabapentin helping -Questionable sequelae of CVA vs spinal? -arm pain resolved, leg pain continues, but improved -increased gabapentin dose -increased robaxin dose -MRI showing degenerative disc disease, but no acute edema Neck pain -Questionable muscle strain -Robaxin helping Diabetes mellitus -Hold metformin for now -Insulin sliding scale -A1c Hypertension -Patient was on captopril, will change to lisinopril for easier dosing and proven benefits over captopril Dyslipidemia -Increased atorvastatin to 80 mg due to acute CVA DISPO: -MRI noted, improving pain, will need to f/u with outpatient neurosurgeon/ortho if pain does not improve -PT/OT, then dispo as patient is having a difficult time walking due to pain Problems: Exam/Review of Systems Vital Signs Vitals Vital Signs Date Time Temp Pulse Resp B/P Pulse Ox O2 Delivery O2 Flow Rate FiO2 05/01/17 08:15 97.7 55 17 125/64 96 04/30/17 16:00 Room Air Intake and Output 04/30/17 04/30/17 05/01/17 15:00 23:00 07:00 Intake Total 500 ml Balance 500 ml Results Result Diagram: 05/01/17 0842 05/01/17 0843 Results 24 hrs Laboratory Tests Test 04/30/17 12:17 04/30/17 17:09 04/30/17 21:19 05/01/17 07:58 Bedside Glucose 141 88 90 86 Test 05/01/17 08:42 05/01/17 08:43 White Blood Count 7.1 Red Blood Count 4.56 Hemoglobin 13.2 Hematocrit 40.8 Mean Corpuscular Volume 89.5 Mean Corpuscular Hemoglobin 28.9 L Mean Corpuscular Hemoglobin Concent 32.4 Red Cell Distribution Width 13.1 Platelet Count 252 Mean Platelet Volume 10.6 H Neutrophils % 57.6 Lymphocytes % 34.4 Monocytes % 5.4 Eosinophils % 1.3 Basophils % 1.0 Nucleated Red Blood Cells % 0.0 Neutrophils # 4.1 Lymphocytes # 2.4 Monocytes # 0.4 Eosinophils # 0.1 Basophils # 0.1 Nucleated Red Blood Cells # 0.0 Sodium Level 140 Potassium Level 4.1 Chloride Level 100 Carbon Dioxide Level 29 Anion Gap 15 Blood Urea Nitrogen 18 Creatinine 0.87 Glucose Level 137 # Calcium Level 9.4 Phosphorus Level 4.0 Magnesium Level 1.9 Medications Medications Current Medications Aspirin (Aspirin) 81 mg DAILY PO Last administered on 05/01/17 09:16; Admin Dose 81 MG; Start 04/29/17 at 09:00 Lorazepam (Ativan) 0.5 mg Q8H PRN PO ANXIETY Last administered on 04/29/17 21 :45; Admin Dose 0.5 MG; Start 04/28/17 at 14:30 Ondansetron HCl (Zofran Inj) 4 mg Q6H PRN IV NAUSEA AND/OR VOMITING Last administered on 04/28/17 16:48; Admin Dose 4 MG; Start 04/28/17 at 14:30 Acetaminophen (Tylenol Tab) 650 mg Q6H PRN PO PAIN LEVEL 1-3 OR FEVER; Start 04/28/17 at 14:30 Acetaminophen/ Hydrocodone Bitart ([place] (5/325)) 1 tab Q6H PRN PO PAIN LEVEL 4 -6 Last administered on 11/22/17at 10:03; Admin Dose 1 TAB; Start 04/28/17 at 14:30 Morphine Sulfate (morphine) 2 mg Q4H PRN IV PAIN LEVEL 7-10; Start 04/28/17 at 14:30 Bisacodyl (Dulcolax) 5 mg DAILY PRN PO CONSTIPATION; Start 04/28/17 at 14:30 Lisinopril (Zestril) 20 mg DAILY PO Last administered on 05/01/17 09:17; Admin Dose 20 MG; Start 04/28/17 at 14:30 Diagnostic Test (Pha) (Accu-Chek) 1 ea 02 XX ; Start 04/29/17 at 02:00 Atorvastatin Calcium (Lipitor) 80 mg HS PO Last administered on 04/30/17 21: 16; Admin Dose 80 MG; Start 04/28/17 at 21:00 Labetalol HCl (Labetalol) 10 mg Q4 PRN IV SBP >180; Start 04/28/17 at 14:30 Gabapentin (Neurontin) 600 mg TID PO Last administered on 05/01/17 09:16; Admin Dose 600 MG; Start 04/30/17 at 13:00 Methocarbamol (Robaxin) 1,500 mg TID PO Last administered on 05/01/17 09:16; Admin Dose 1,500 MG; Start 04/30/17 at 13:00 PAVEL MONROE May 01, 2017 11:38
[2017-05-01] MEDS: ONDANSETRON 4 MG INJ IV PRN (13:49)
[2017-05-01] MEDS: ATORVASTATIN 80 MG TAB PO SCH (21:02)
[2017-05-02] VITALS (12 sets, daily range): BP systolic 97–125; BP diastolic 52–76; PULSE 60–68; RESP 19–20
[2017-05-02] MEDS: ACCU-CHEK XX SCH (02:00)
[2017-05-02] MEDS: INSULIN ASPART [NOVOLOG] 3 ML PEN SC SCH ×2 (08:00→12:00)
[2017-05-02] MEDS: ASPIRIN 81 MG TAB PO SCH (09:07)
[2017-05-02] MEDS: METHOCARBAMOL 500 MG TAB PO SCH ×3 (09:07→21:43)
[2017-05-02] MEDS: GABAPENTIN 300 MG CAP PO SCH ×3 (09:07→21:42)
[2017-05-02] MEDS: LISINOPRIL 20 MG TAB PO SCH (09:08)
--- NOTE | 2017-05-02 11:30 | PN ---
Date/Time of Note Date/Time of Note DATE: 05/02/17 TIME: : Assessment/Plan VTE Prophylaxis VTE Prophylaxis Intervention: ambulation, SCD's Lines/Catheters IV Catheter Type (from Nrsg): Saline Lock Assessment/Plan Chief Complaint/Hosp Course s: 05.01: leg pain improved, facial droop improved 05.02: leg pain and facial droop improved even more compared to yesterday o: Physical exam General: Patient is laying in bed and answers questions appropriately Mentation: Patient is alert and oriented 4, Head: Normocephalic atraumatic Eyes: EOMI, pupils reactive to light Neck: Supple, nontender, midline Respiratory: Clear to auscultation bilaterally Cardiovascular: regular rate, no obvious murmurs Gastrointestinal: non-tender to palpation, bowel sounds heard. Neurological: Strength LUE 5/5 RUE 5/5 LLE4/5 RLE 5/5 Sensation LUE/LLE 5/5 RUE/ RLE 5/5 minimal Painful to touch on left LE, limited to back of leg Skin: No new skin lesions Patient is a 62-year-old female who presents to [facility] for left-sided weakness and numbness, questionable CVA Assessment and plan Left-sided weakness and numbness and facial droop -Questionable CVA -Tele-neurologist decided no TPA due to outside window -Neurologist consulted -MRI, MRA, CT WNL -baby asa -statin Left-sided leg and arm pain -Gabapentin helping -Questionable sequelae of CVA vs spinal? -arm pain resolved, very minimal leg pain, but improved -increased gabapentin dose -increased robaxin dose -MRI showing degenerative disc disease, but no acute edema Neck pain -Questionable muscle strain -Robaxin helping Diabetes mellitus -Hold metformin for now -Insulin sliding scale -A1c Hypertension -Patient was on captopril, will change to lisinopril for easier dosing and proven benefits over captopril Dyslipidemia -Increased atorvastatin to 80 mg due to acute CVA DISPO: -MRI noted, improving pain, will need to f/u with outpatient neurosurgeon/ortho if pain does not improve -PT/OT, then dispo -if full resolution by tomorrow, may not even need resources Problems: Exam/Review of Systems Vital Signs Vitals Vital Signs Date Time Temp Pulse Resp B/P Pulse Ox O2 Delivery O2 Flow Rate FiO2 05/02/17 08:13 63 05/02/17 08:12 97.8 20 112/72 99 04/30/17 16:00 Room Air Intake and Output 05/01/17 05/01/17 05/02/17 15:00 23:00 07:00 Intake Total 950 ml 600 ml Balance 950 ml 600 ml Results Result Diagram: 05/01/17 0842 05/01/17 0843 Results 24 hrs Laboratory Tests Test 05/01/17 12:01 05/01/17 17:26 05/01/17 21:05 05/02/17 08:15 Bedside Glucose 83 184 78 87 Medications Medications Current Medications Aspirin (Aspirin) 81 mg DAILY PO Last administered on 05/02/17 09:07; Admin Dose 81 MG; Start 04/29/17 at 09:00 Lorazepam (Ativan) 0.5 mg Q8H PRN PO ANXIETY Last administered on 04/29/17 21 :45; Admin Dose 0.5 MG; Start 04/28/17 at 14:30 Ondansetron HCl (Zofran Inj) 4 mg Q6H PRN IV NAUSEA AND/OR VOMITING Last administered on 05/01/17 13:49; Admin Dose 4 MG; Start 04/28/17 at 14:30 Acetaminophen (Tylenol Tab) 650 mg Q6H PRN PO PAIN LEVEL 1-3 OR FEVER; Start 04/28/17 at 14:30 Acetaminophen/ Hydrocodone Bitart ([place] (5/325)) 1 tab Q6H PRN PO PAIN LEVEL 4 -6 Last administered on 04/30/17 10:03; Admin Dose 1 TAB; Start 04/28/17 at 14:30 Morphine Sulfate (morphine) 2 mg Q4H PRN IV PAIN LEVEL 7-10; Start 04/28/17 at 14:30 Bisacodyl (Dulcolax) 5 mg DAILY PRN PO CONSTIPATION; Start 04/28/17 at 14:30 Lisinopril (Zestril) 20 mg DAILY PO Last administered on 05/02/17 09:08; Admin Dose 20 MG; Start 04/28/17 at 14:30 Diagnostic Test (Pha) (Accu-Chek) 1 ea 02 XX ; Start 04/29/17 at 02:00 Atorvastatin Calcium (Lipitor) 80 mg HS PO Last administered on 05/01/17 21: 02; Admin Dose 80 MG; Start 04/28/17 at 21:00 Labetalol HCl (Labetalol) 10 mg Q4 PRN IV SBP >180; Start 04/28/17 at 14:30 Gabapentin (Neurontin) 600 mg TID PO Last administered on 05/02/17 09:07; Admin Dose 600 MG; Start 04/30/17 at 13:00 Methocarbamol (Robaxin) 1,500 mg TID PO Last administered on 05/02/17 09:07; Admin Dose 1,500 MG; Start 04/30/17 at 13:00 PAVEL MONROE May 02, 2017 11:30
[2017-05-02] MEDS: metFORMIN 500 MG TAB PO SCH (18:06)
[2017-05-02] MEDS: ATORVASTATIN 80 MG TAB PO SCH (21:43)
[2017-05-03 00:23] VITALS: BP 109/58; RESP 19
[2017-05-03 00:34] VITALS: PULSE 66
[2017-05-03 04:12] VITALS: BP 108/63; RESP 19
[2017-05-03 04:38] VITALS: PULSE 59
[2017-05-03 06:31] LABS: BASOPHIL # 0.1 10^3/ul (0.0-0.1); EOSINOPHILS # 0.1 10^3/ul (0.0-0.5); EOSINOPHILS % 1.5 % (0.0-7.0); HEMATOCRIT 40.3 % (37.0-47.0); LYMPHOCYTES # 3.4 10^3/ul (0.8-2.9); LYMPHOCYTES % 37.7 % (15.0-51.0); MEAN CORPUSCULAR HEMOGLOBIN 28.5 pg (29.0-33.0); MEAN CORPUSCULAR HGB CONC 32.3 g/dl (32.0-37.0); MEAN CORPUSCULAR VOLUME 88.4 fl (82.0-101.0); MEAN PLATELET VOLUME 10.6 fl (7.4-10.4); MONOCYTE # 0.6 10^3/ul (0.3-0.9); MONOCYTES % 7.1 % (0.0-11.0); NEUTROPHIL # 4.7 10^3/ul (1.6-7.5); NEUTROPHILS % 52.5 % (39.0-77.0); PLATELET COUNT 259 10^3/UL (140-415); RED BLOOD COUNT 4.56 10^6/ul (4.20-5.40); RED CELL DISTRIBUTION WIDTH 13.1 % (11.5-14.5); WHITE BLOOD COUNT 8.9 10^3/ul (4.8-10.8)
[2017-05-03 07:07] LABS: CALCIUM 9.8 mg/dl (8.4-10.2); CREATININE 0.73 mg/dl (0.44-1.00); MAGNESIUM 1.9 mg/dl (1.7-2.5); PHOSPHORUS 4.2 mg/dl (2.5-4.9); POTASSIUM 4.3 mmol/L (3.5-5.1)
[2017-05-03 08:00] VITALS: PULSE 55
[2017-05-03 08:12] VITALS: BP 154/70; RESP 19
[2017-05-03] MEDS: metFORMIN 500 MG TAB PO SCH (08:36)
[2017-05-03] MEDS: ASPIRIN 81 MG TAB PO SCH (08:36)
[2017-05-03] MEDS: GABAPENTIN 300 MG CAP PO SCH (08:36)
[2017-05-03] MEDS: LISINOPRIL 20 MG TAB PO SCH (08:37)
[2017-05-03] MEDS: METHOCARBAMOL 500 MG TAB PO SCH (08:37)
--- NOTE | 2017-05-03 09:27 | PDOCDIS ---
Discharge Instructions CONDITION Patient Condition: Stable HOME CARE INSTRUCTIONS: Special Diet: Carb Controlled FOLLOW UP/APPOINTMENTS Follow-up Plan 1. Take all medications as directed, please stop captopril and start lisinopril. Also, note increased dose of atorvastatin 2. Please see your primary care physician as soon as possible 3. Please follow up with neurology for Transient Ischemic Attack 4. Please follow up with orthopedic surgery or neurosurgery for lumbar disc disease/disc bulge PAVEL MONROE May 03, 2017 09:27
[2017-05-03] MEDS ORDERED: GABA-526 PO (09:30)
[2017-05-03] MEDS ORDERED: METH750T2 PO (09:30)
[2017-05-03] MEDS ORDERED: LISI20TA11 PO (09:30)
[2017-05-03] MEDS ORDERED: ATOR80TA75 PO (09:30)
--- NOTE | 2017-05-03 12:26 | DS ---
Date/Time of Note Date/Time of Note DATE: 05/03/17 TIME: 12:26 Discharge Summary Admission/Discharge Info Admit Date/Time Apr 28, 2017 at 13:25 Discharge Date/Time Patient Condition: Stable Hx of Present Illness Patient is a 62-year-old female with past medical history of diabetes hypertension who presents to [facility] for acute onset left- sided weakness and numbness. Patient stated approximately 7 AM today she suddenly felt weak and numb on her left lower extremity and left upper extremity as well as difficulty speaking and left-sided facial numbness. Patient's daughter is at bedside and also contributes to HPI. Patient was sent to the ED and was seen by tele-neurologist, who did not prescribe TPA as patient is out of the window. Patient states that symptoms have mildly resolved , however it is now accompanied by a painful sensation to touch on her left lower extremity, mild pain to touch on her left upper extremity, as well as mild neck pain. 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 Patient denies any shortness of breath, fever, chest pain, nausea, vomiting at this time. PMH: Hypertension, diabetes mellitus, history of Alegre's palsy PSH: None Social: Denies Meds: Captopril, metformin, aspirin, atorvastatin Hospital Course Patient is 62-year-old female who originally presented with left-sided weakness and pain and was diagnosed with TIA by neurology who subsequently underwent physical therapy and treatment with gabapentin for nerve pain. Patient's nerve pain and symptoms of left facial droop, left upper extremity and lower extremity pain and weakness improved significantly during the stay. Patient was started on gabapentin and muscle relaxers. Patient was seen by PT and was offered [facility] facility or inpatient rehab, patient's family and patient refused inpatient rehab and wanted to take patient back home. Patient will be arranged physical therapy outpatient as well as given a front wheel walker before discharge. Patient will continue gabapentin and muscle relaxer for a short amount of time until she follows up with her primary care provider as soon as possible. Will continue other medications including metformin, patient's captopril was changed to lisinopril and her atorvastatin was increased due to TIA. Patient is also to continue a baby aspirin. Of note patient's imaging have been negative for acute CVA, lumbar MRI did show moderate to severe degenerative disc disease which needs to be addressed in the outpatient setting by an orthopedic or neurosurgeon. There is no cord compression or other acute issues of the spinal column. Discharge diagnoses TIA Left-sided weakness and numbness and facial droop Left-sided leg pain and arm pain Neck pain Diabetes mellitus Hypertension Dyslipidemia Home Meds Active Scripts Lisinopril* (Lisinopril*) 20 Mg Tablet, 20 MG PO DAILY for 30 Days, #30 TAB 1 Refill Prov:PAVEL MONROE J 05/03/17 Atorvastatin* (Atorvastatin*) 80 Mg Tablet, 80 MG PO HS for 30 Days, #30 TAB 1 Refill Prov:PAVEL MONROE J 05/03/17 Gabapentin* (Gabapentin*) 600 Mg Tablet, 600 MG PO TID, #90 TAB 1 Refill Prov:PAVEL MONROE J 05/03/17 Methocarbamol* (Methocarbamol*) 750 Mg Tablet, 1500 MG PO TID, #9 TAB Prov:PAVEL MONROE J 05/03/17 Reported Medications Metformin* (Glucophage*) 500 Mg Tab, 500 MG PO BID, #30 TAB 04/28/17 Aspirin* (Aspirin* Chew) 81 Mg Tab.chew, 81 MG PO DAILY, TAB.CHEW 04/28/17 Discontinued Reported Medications Atorvastatin Calcium (Atorvastatin Calcium) 10 Mg Tablet, 10 MG PO QHS, #30 TAB 04/28/17 Captopril* (Captopril*) 25 Mg Tablet, 25 MG PO TID, #90 TAB 04/28/17 Follow-up Plan 1. Take all medications as directed, please stop captopril and start lisinopril. Also, note increased dose of atorvastatin 2. Please see your primary care physician as soon as possible 3. Please follow up with neurology for Transient Ischemic Attack 4. Please follow up with orthopedic surgery or neurosurgery for lumbar disc disease/disc bulge Primary Care Provider [facility] Time spent on discharge: > 30 minutes Pending Labs Laboratory Tests Test 05/02/17 12:35 05/02/17 13:23 05/03/17 05:50 Bedside Glucose 91mg/dL (70-220) 82mg/dL (70-220) White Blood Count 8.910^3/ul (4.8-10.8) Red Blood Count 4.5610^6/ul (4.20-5.40) Hemoglobin 13.0g/dl (12.0-16.0) Hematocrit 40.3% (37.0-47.0) Mean Corpuscular Volume 88.4fl (82.0-101.0) Mean Corpuscular Hemoglobin 28.5pg (29.0-33.0) Mean Corpuscular Hemoglobin Concent 32.3g/dl (32.0-37.0) Red Cell Distribution Width 13.1% (11.5-14.5) Platelet Count 61160^3/UL (140-415) Mean Platelet Volume 10.6fl (7.4-10.4) Neutrophils % 52.5% (39.0-77.0) Lymphocytes % 37.7% (15.0-51.0) Monocytes % 7.1% (0.0-11.0) Eosinophils % 1.5% (0.0-7.0) Basophils % 1.0% (0.0-2.0) Nucleated Red Blood Cells % 0.0/100WBC (0.0-0.0) Neutrophils # 4.710^3/ul (1.6-7.5) Lymphocytes # 3.410^3/ul (0.8-2.9) Monocytes # 0.610^3/ul (0.3-0.9) Eosinophils # 0.110^3/ul (0.0-0.5) Basophils # 0.110^3/ul (0.0-0.1) Nucleated Red Blood Cells # 0.010^3/ul (0.0-0.0) Sodium Level 142mmol/L (135-144) Potassium Level 4.3mmol/L (3.5-5.1) Chloride Level 105mmol/L (97-110) Carbon Dioxide Level 28mmol/L (21-31) Anion Gap 13 (8-16) Blood Urea Nitrogen 19mg/dl (7-20) Creatinine 0.73mg/dl (0.44-1.00) Glucose Level 94mg/dl (70-220) Calcium Level 9.8mg/dl (8.4-10.2) Phosphorus Level 4.2mg/dl (2.5-4.9) Magnesium Level 1.9mg/dl (1.7-2.5) PAVEL MONROE May 03, 2017 12:26
== END 2017-05-03 12:08 | disposition home health service (06) | DRG 69 ==
LOC: E/R 11:41 → MS3 13:25 → MS4 04-30 19:00
PROVIDERS: ADMIT Hospitalist; ATTEND Hospitalist
DX: G45.9 Transient cerebral ischemic attack, unspecified (principal); Z68.41 Body mass index [BMI] 40.0-44.9, adult; I10 Essential (primary) hypertension; E66.01 Morbid (severe) obesity due to excess calories; E11.9 Type 2 diabetes mellitus without complications; E78.5 Hyperlipidemia, unspecified; R29.810 Facial weakness; M54.2 Cervicalgia; R53.1 Weakness; Z79.4 Long term (current) use of insulin; Z79.82 Long term (current) use of aspirin; Z87.891 Personal history of nicotine dependence
CPT/HCPCS: 36415; 70450; 70544; 70549; 70551; 71010; 72148; 80048; 80053; 80061; 82962; 83036; 83735; 84100; 84443; 84484; 85025; 85610; 85730; 92523; 92526; 92610; 93005; 93306; 97163; 97166; J1815; J2270; J2405

== ENCOUNTER 2018-03-10 12:27 | Emergency (ER) | END 2018-03-10 14:17 | disposition home or self-care (01) ==